=== PATIENT | male | born 1970 | race American Indian/Alaskan Native ===

== ENCOUNTER 2019-07-28 14:06 | Emergency (ER) | payer SELFPAY ==
[2019-07-28 14:21] VITALS: BP 168/96
--- NOTE | 2019-07-28 14:29 | Emergency Department Report ---
- General Chief complaint: Skin Rash Stated complaint: RASH Time Seen by Provider: 07/28/19 14:20 Source: patient Mode of arrival: Ambulatory Limitations: No Limitations - Related Data Previous Rx's Medication Instructions Recorded Last Taken Type Permethrin 5% [Acticin 5% CREAM] 1 applicatio TP ONCE 1 Days #1 tube 07/28/19 Unknown Rx Triamcinolone Acetonide 80 gm TP TID PRN 7 Days #1 07/28/19 Unknown Rx oint...g. predniSONE [Deltasone] 20 mg PO TID 3 Days #9 tab 07/28/19 Unknown Rx Allergies Allergy/AdvReac Type Severity Reaction Status Date / Time No Known Allergies Allergy Unverified 07/28/19 14:08 [facility] Chief Complaint: Skin Rash Stated Complaint: RASH Time Seen by Provider: 07/28/19 14:20 Home Medications: Previous Rx's Medication Instructions Recorded Last Taken Type Permethrin 5% [Acticin 5% CREAM] 1 applicatio TP ONCE 1 Days #1 tube 07/28/19 Unknown Rx Triamcinolone Acetonide 80 gm TP TID PRN 7 Days #1 07/28/19 Unknown Rx oint...g. predniSONE [Deltasone] 20 mg PO TID 3 Days #9 tab 07/28/19 Unknown Rx Allergies/Adverse Reactions: Allergies Allergy/AdvReac Type Severity Reaction Status Date / Time No Known Allergies Allergy Unverified 07/28/19 14:08 ED Review of Systems ROS: Stated complaint: RASH Other details as noted in HPI ED Past Medical Hx - Past Medical History Previous Medical History?: No - Surgical History Past Surgical History?: No - Social History Smoking Status: Never Smoker Substance Use Type: Alcohol - Medications Home Medications: Home Medications Medication Instructions Recorded Confirmed Last Taken Type Permethrin 5% [Acticin 5% CREAM] 1 applicatio TP ONCE 1 Days #1 tube 07/28/19 U nknown Rx Triamcinolone Acetonide 80 gm TP TID PRN 7 Days #1 07/28/19 Unknown Rx oint...g. predniSONE [Deltasone] 20 mg PO TID 3 Days #9 tab 07/28/19 Unknown Rx ED Physical Exam - General Limitations: No Limitations ED Course Vital Signs 07/28/19 14:20 Temperature 97.9 F Pulse Rate 95 H Respiratory 16 Rate Blood Pressure 168/96 [Left] O2 Sat by Pulse 99 Oximetry Critical care attestation.: If time is entered above; I have spent that time in minutes in the direct care of this critically ill patient, excluding procedure time. ED Disposition Clinical Impression: Rash Disposition: DC-01 TO HOME OR SELFCARE Is pt being admited?: No Condition: Stable Instructions: Scabies (ED), Acute Rash (ED) Prescriptions: Permethrin 5% [Acticin 5% CREAM] 1 applicatio TP ONCE 1 Days #1 tube predniSONE [Deltasone] 20 mg PO TID 3 Days #9 tab Triamcinolone Acetonide 80 gm TP TID PRN 7 Days #1 oint...g. PRN Reason: Itching Referrals: JOSE PHOENIX MD [Staff Physician] - 3-5 Days
== END 2019-07-28 15:33 | disposition home or self-care (01) ==
LOC: ED 14:06
DX: R21 Rash and other nonspecific skin eruption (principal); Z79.899 Other long term (current) drug therapy